=== PATIENT | female | born 1965 | race African-American/Black ===

== ENCOUNTER 2019-08-08 21:21 | Emergency (ER) | payer MEDICAID, OTHER ==
[~2019-08-08] VITALS: Ht 172.7 cm; Wt 93.0 kg
[2019-08-08] MEDS ORDERED: SODIUM CHLORIDE 0.9% 1,000 ML IV ONE (22:12)
[2019-08-08] MEDS ORDERED: ONDANSETRON HCL 4MG/2ML INJ IV STA (22:12)
[2019-08-08] MEDS ORDERED: MORPHINE SULFATE 4 MG/ML CPJ (NOT FOR IM USE) IV STA (22:12)
[2019-08-08] MEDS ORDERED: METHYLPREDNISOLONE SOD SUCC 125 MG/2 ML VIAL IV STA (22:12)
[2019-08-08] MEDS ORDERED: KETOROLAC 30MG/ML VIAL IV STA (22:12)
[2019-08-08] MEDS ORDERED: LEVOFLOXACIN 500MG TABLET PO ONE (22:15)
[2019-08-08] MEDS ORDERED: IPRATROPIUM/ALBUTEROL 0.5-3(2.5)MG/3ML NEB HHN ONE (22:15)
[2019-08-08 23:01] LABS: BASOPHILS % 0.7 % (0.0-2.0); EOSINOPHILS % 1.9 % (0.0-5.0); HEMATOCRIT. 40.4 % (36.0-48.0); HEMOGLOBIN. 13.5 g/dL (12.0-16.0); LYMPHOCYTES % 23.7 % (20.0-50.0); MEAN CORPUSCULAR HEMOGLOBIN 32.5 pg (28.0-32.0); MEAN CORPUSCULAR VOLUME 97.6 fL (81.0-99.0); MEAN PLATELET VOLUME 9.4 fl (7.4-10.4); MONOCYTES % 6.7 % (2.0-8.0); PLATELET 233 x1000/uL (130-400); RED BLOOD CELL COUNT 4.14 mill/uL (4.2-5.4); RED CELL DISTRIBUTION WIDTH 13.9 % (11.6-14.6)
[2019-08-08 23:06] LABS: CHLORIDE 105 mEq/L (98-107)
[2019-08-08 23:11] LABS: ETHANOL BLOOD < 10 mg/dL
[2019-08-08 23:12] LABS: D-DIMER 0.62 mg/L FEU (<0.50); PARTIAL THROMBOPLASTIN TIME 28.2 sec (23.4-31.0); PROTHROMBIN TIME 9.8 sec (9.6-11.0)
[2019-08-08 23:15] LABS: CREATINE KINASE 66 IU/L (26-192)
[2019-08-08 23:18] LABS: CREATINE KINASE MB FRACTION < 1.0 ng/mL (0.5-3.6)
[2019-08-09] MEDS ORDERED: MORPHINE SULFATE 4 MG/ML CPJ (NOT FOR IM USE) IV ONE (01:15)
[2019-08-09] MEDS ORDERED: ONDANSETRON HCL 4MG/2ML INJ IV ONE (01:15)
[2019-08-09] MEDS ORDERED: FAMOTIDINE 20MG/2ML VIAL IV ONE (01:15)
[2019-08-09] MEDS ORDERED: IOHEXOL-350 100 ML BOTTLE ONE (03:34)
[2019-08-09 05:10] VITALS: BP 145/79
== END 2019-08-09 05:11 | disposition home or self-care (01) ==
LOC: ER 21:21
DX: R06.02 Shortness of breath (principal); R05 Cough; R07.9 Chest pain, unspecified; J45.909 Unspecified asthma, uncomplicated; Z78.0 Asymptomatic menopausal state
CPT/HCPCS: 36415; 71045; 71275; 80053; 80320; 82550; 82553; 83880; 84443; 84484; 85025; 85379; 85610; 85730; 87040; 93005; 96374; 96375; 96376; 99284; J1885; J2270; J2405; J2930; J3490; J7030; J7620; Q9967; G0480